=== PATIENT | male | born 1990 | race Caucasian/White ===

== ENCOUNTER 2023-10-06 09:12 | Emergency (ER) | payer SELFPAY ==
[2023-10-06] VITALS (8 sets, daily range): BP systolic 113–146; BP diastolic 66–96; PULSE 69–83; RESP 16–17; TEMP 36.6; O2SAT 91–97; BMI 30.4
--- NOTE | 2023-10-06 09:42 | CT_ITS ---
WS: [id number] CT FACIAL BONES TECHNIQUE: Contrast-enhanced facial bones with coronal and sagittal reformatted images. CLINICAL INFORMATION: dental abscess with submandibular swelling/fullness COMPARISON: None. DLP: 612.[address] scans at [facility] use at least one of these dose optimization techniques: automated e xposure control; mA and/or kV adjustment per patient size (includes targeted exams where dose is matc hed to clinical indication); or iterative reconstruction. FINDINGS: Evidence of recent dental extractions involving the LEFT posterior mandible. Peripherally enhancing a bscess in the extraction cavity involving the extraction cavity with inflammatory stranding and edema within the submandibular space extending into the floor of mouth. Small peripheral enhancing pockets of abscess in this area measuring up to 5 to 6 mm. Associated mass effect on the LEFT mylohyoid. Mas s effect on the LEFT parapharyngeal fat and LEFT oropharynx. Secretions in the LEFT vallecula with ph aryngeal edema. Reactive cervical lymph nodes submandibular space and LEFT upper cervical chain. Thickening of the pl atysma. Incidental enhancing venous angioma LEFT frontal lobe. Small retention cyst in the LEFT maxillary sin us. Paranasal sinuses are otherwise well aerated. Mastoid air cells appear well aerated. CT/CT facial bones w con [id number] IMPRESSION: 1. Evidence of recent posterior molar extraction from the LEFT mandible. Assoc iated abscess in the extraction cavity extending into the adjacent submandibula r space and sublingual space along the mylohyoid. Small patchy peripheral enhan cing abscess collections measuring up to 5 to 6 mm extending into the floor of mouth. 2. Mild mass effect on the oropharynx and palatine tonsil with partial effacem ent of the parapharyngeal fat. Secretions in the LEFT vallecula with mild mass effect on the oropharynx. No critical airway narrowing. 3. Associated reactive lymph nodes in the submandibular space and upper cervic al chain. 4. Evidence of chronic dental erosion and prior extraction within the LEFT max illa. Notified Kirby Pereira DO at 10/06/2023 10:55 AM.
--- NOTE | 2023-10-06 09:47 | ED_ITS ---
HPI - Dental/Oral 2 General: Chief complaint: Dental/Oral Stated complaint: Left side face possible infection Time Seen by Provider: 10/06/23 09:14 History of Present Illness: 33-year-old male presents emergency room 4 days ago he had several molar extracted and left mandible. Since then he has developed increased swelling and pain of the jaw extending underneath his jaw toward the midline. Low-grade subjective fever he is felt a little uncomfortable sensation with swallowing but has not had any difficulty with speech or swallowing. He has been on amoxicillin despite cyst he continues to have symptoms. No vomiting. Denies chest pain. No hemoptysis. Associated symptoms: Reports fever(s) (Subjective) Related Data Home Medications Medication Instructions Recorded Confirmed amoxicillin 500 mg capsule 500 mg PO TID 10/06/23 10/06/23 hydrocodone 7.5 mg-acetaminophen 1 tab PO .Q4-6H PRN Pain 10/06/23 10/06/23 325 mg tablet ketorolac 10 mg tablet 10 mg PO .Q6-8H PRN Pain 10/06/23 10/06/23 Allergies Allergy/AdvReac Type Severity Reaction Status Date / Time No Known Allergies Allergy Verified 10/06/23 09:23 Review of Systems 2 Const: Reports: fever(s) (Subjective); Denies: chills ENMT: Reports: other (Swelling in neck and under the jaw) Card: Denies: chest pain Resp: Denies: dyspnea GI: Denies: abdominal pain : Denies: dysuria, urinary frequency or urinary urgency Musc: Denies: neck pain or back pain Skin/Breast: Denies: rash Physical Exam 2 Const: COMMON NORMALS: no acute distress GENERAL APPEARANCE: cooperative and comfortable ORIENTATION/CONSCIOUSNESS: Yes awake, Yes oriented to person, Yes oriented to place and Yes oriented to time HENMT: COMMON NORMALS: normocephalic, atraumatic and hearing grossly normal bilaterally HEAD & SCALP: normocephalic and atraumatic OTHER: Oropharynx there is a inflamed gumline in the posterior gumline where the tooth was extracted no active drainage patient has significant tenderness, and tenesmus Neck/C-Spine: OTHER: Significant for soft tissue swelling in the septum extending into the submandibular space exquisitely tender over the left mandible near the angle of the jaw. Resp: COMMON NORMALS: normal respiratory effort, No retractions, No use of accessory muscles and clear to auscultation bilaterally AUSCULTATION: clear to auscultation bilaterally Cardio: COMMON NORMALS: regular rate, regular rhythm and No murmurs present (Cardio) RATE: regular rate RHYTHM: regular rhythm Extremity: COMMON NORMALS: normal to inspection, capillary refill normal, no clubbing, cyanosis or edema, no calf tenderness and no pedal edema Neuro: SENSORIUM/ORIENTATION: Yes oriented to person, Yes oriented to place and Yes oriented to time Skin: COMMON NORMALS: no rashes or lesions noted GENERAL SKIN EXAM: no rashes or lesions noted Course 2 Vital Signs: Vital signs: Vital Signs Temperature 97.9 F 10/06/23 09:20 Pulse Rate 69 10/06/23 15:00 Respiratory Rate 17 10/06/23 09:53 Blood Pressure 113/66 10/06/23 15:00 Pulse Oximetry 91 10/06/23 15:00 Oxygen Delivery Me thod Room Air 10/06/23 15:00 MDM - Dental/Oral Medical Decision Making Infection extending into the submandibular space with small areas of abscess discussed with on-call oral maxillofacial surgery they felt they should see the patient. He has had blood cultures and was started on vancomycin and Zosyn. Will transfer to [facility] patient is a direct admit to [place] and the hospital service and they will consult oral maxillary facial's surgery Lab Data 10/06/23 09:58 10/06/23 09:[address] 10/06/23 09:42 IMPRESSION: 1. Evidence of recent posterior molar extraction from the LEFT mandible. Associated abscess in the extraction cavity extending into the adjacent submandibular space and sublingual space along the mylohyoid. Small patchy peripheral enhancing abscess collections measuring up to 5 to 6 mm extending into the floor of mouth. 2. Mild mass effect on the oropharynx and palatine tonsil with partial effacement of the parapharyngeal fat. Secretions in the LEFT vallecula with mild mass effect on the oropharynx. No critical airway narrowing. 3. Associated reactive lymph nodes in the submandibular space and upper cervical chain. 4. Evidence of chronic dental erosion and prior extraction within the LEFT maxilla. Notified Kirby Pereira DO at 10/06/2023 10:55 AM. Laboratory Results WBC 11.39 10^3/uL (3.29-11.43) 10/06/23 09:58 RBC 5.55 10^6/uL (3.85-5.65) 10/06/23 09:58 Hgb 15.70 g/dL (11.27-16.99) 10/06/23 09:58 Hct 47.4 % (37-53) 10/06/23 09:58 MCV 85.4 fl (82-101) 10/06/23 09:58 MCH 28.3 pg (27-33) 10/06/23 09:58 MCHC 33.1 g/dL (30-55) 10/06/23 09:58 RDW 12.0 % (12.1-15.1) L 10/06/23 09:58 Plt Count 325 10^3/cmm (157-399) 10/06/23 09:58 MPV 10.6 fL (7.4-10.4) H 10/06/23 09:58 Neut % (Auto) 71.5 % 10/06/23 09:58 Lymph % (Auto) 18.3 % 10/06/23 09:58 [place] % (Auto) 8.5 % 10/06/23 09:58 Eos % (Auto) 0.8 % 10/06/23 09:58 Baso % (Auto) 0.5 % 10/06/23 09:58 Neut # (Auto) 8.14 10^3/uL (1.8-7.7) H 10/06/23 09:58 Lymph # (Auto) 2.1 10^3/uL (0.8-4.8) 10/06/23 09:58 [place] # (Auto) 1.0 10^3/uL (0.2-0.9) H 10/06/23 09:58 Eos # (Auto) 0.1 10^3/uL (0.0-0.8) 10/06/23 09:58 Baso # (Auto) 0.1 10^3/uL (0.0-0.1) 10/06/23 09:58 Nucleated RBC % (auto) 0 % 10/06/23 09:58 Nucleated RBCs # 0.0 /100WBC 10/06/23 09:58 Sodium 139 mmol/L (136-145) 10/06/23 09:58 Potassium 4.4 mmol/L (3.5-5.1) 10/06/23 09:58 Chloride 99 mmol/L (98-107) 10/06/23 09:58 Carbon Dioxide 25 mmol/L (22-29) 10/06/23 09:58 Anion Gap 19.4 (5-19) H 10/06/23 09:58 BUN 8 mg/dL (6-20) 10/06/23 09:58 Creatinine 0.8 mg/dL (0.7-1.2) 10/06/23 09:58 GFR Calculation 110.7 mL/min (90-130) 10/06/23 09:58 Glucose 116 mg/dL (65-115) H 10/06/23 09:58 Calculated Osmolality 287 mOsm/kg (285-295) 10/06/23 09:58 Lactic Acid 0.9 mmol/L (0.5-2.2) 10/06/23 11:07 Calcium 9.6 mg/dL (8.5-10.5) 10/06/23 09:58 Total Bilirubin 0.6 mg/dL (0.15-1.2) 10/06/23 09:58 AST 20 U/L (0-40) 10/06/23 09:58 ALT 20 U/L (0-41) 10/06/23 09:58 Alkaline Phosphatase 114 U/L (40-130) 10/06/23 09:58 Total Protein 8.5 g/dL (6.6-8.7) 10/06/23 09:58 Albumin 4.6 g/dL (3.5-5.2) 10/06/23 09:58 Globulin 3.9 g/dL (1.3-4.6) 10/06/23 09:58 All radiology interpretation(s) finalized by discharge Discharge Plan Discharge Patient Disposition: Xfer Short-Term Hosp Clinical Impression: Efren's angina syndrome Condition: Stable Prescriptions: No Action amoxicillin 500 mg capsule 500 mg PO TID ketorolac 10 mg tablet 10 mg PO .Q6-8H PRN (Reason: Pain) hydrocodone-acetaminophen 7.5-325 mg tablet 1 tab PO .Q4-6H PRN (Reason: Pain) Referrals: Piter Walker MD [Primary Care Provider] - Coding Level of Care Code ED Project Superintendent for [facility]
[2023-10-06] MEDS: morphine 4 mg/mL SDV 1 mL IVP (09:53)
[2023-10-06] MEDS: ondansetron 2 mg/ML SDV 2 mL 4 MG IVP (09:53)
[2023-10-06 10:14] LABS: Basophils # 0.1 10^3/uL (0.0-0.1); Basophils % 0.5 %; Eosinophils # 0.1 10^3/uL (0.0-0.8); Eosinophils % 0.8 %; Hematocrit 47.4 % (37-53); Lymphocytes # 2.1 10^3/uL (0.8-4.8); Lymphocytes % 18.3 %; Mean Corpuscular HGB Conc 33.1 g/dL (30-55); Mean Corpuscular Hemoglobin 28.3 pg (27-33); Mean Corpuscular Volume 85.4 fl (82-101); Mean Platelet Volume 10.6 fL (7.4-10.4); Monocytes % 8.5 %; Neutrophils # 8.14 10^3/uL (1.8-7.7); Neutrophils % 71.5 %; Nucleated Red Blood Cells % 0 %; Platelet Count 325 10^3/cmm (157-399); Red Blood Count 5.55 10^6/uL (3.85-5.65); White Blood Count 11.39 10^3/uL (3.29-11.43)
[2023-10-06] MEDS: iohexol 350 mg/mL 500 mL Btl (per mL) IV (10:17)
[2023-10-06 10:38] LABS: Albumin Level 4.6 g/dL (3.5-5.2); Alkaline Phosphatase 114 U/L (40-130); Anion Gap 19.4 (5-19); Aspartate Amino Transferase 20 U/L (0-40); Blood Urea Nitrogen 8 mg/dL (6-20); Calcium 9.6 mg/dL (8.5-10.5); Carbon Dioxide 25 mmol/L (22-29); Chloride 99 mmol/L (98-107); Creatinine Clr Calc Pharmacy 142.3035; Globulin 3.9 g/dL (1.3-4.6); Glomerular Filtration Rate 110.7 mL/min (90-130); Glucose 116 mg/dL (65-115); Osmolality Calculated 287 mOsm/kg (285-295); Potassium 4.4 mmol/L (3.5-5.1); Sodium 139 mmol/L (136-145); Total Bilirubin 0.6 mg/dL (0.15-1.2); Total Protein 8.5 g/dL (6.6-8.7)
[2023-10-06 10:50] LABS: Alanine Aminotransferase 20 U/L (0-41)
[2023-10-06] MEDS: dexamethasone 10 mg/mL INJ IVP (11:01)
[2023-10-06] MEDS: piperacillin-tazobactam 3.375 GM in sodium chloride 0.9% (plus) 50 ML IV (11:01)
[2023-10-06 11:30] LABS: Lactic Sepsis W/Reflex 0.9 mmol/L (0.5-2.2)
[2023-10-06] MEDS: vancomycin 1,000 MG in sodium chloride 0.9% 250 ML 250 MG IV (11:33)
--- NOTE | 2023-10-06 15:03 | PC.NURSE ---
REPORT CALLED TO DANNA MOURA. ACCEPTING NURSE DENIED ANY FURTHER VERBALIZED QUESTIONS OR CONCERNS.
== END 2023-10-06 17:30 | disposition short-term general hospital (02) ==
PROVIDERS: Emergency Provider Family Medicine; Family Provider Family Medicine; PCP Family Medicine
DX: K12.2 Cellulitis and abscess of mouth (principal)
CPT/HCPCS: 36415; 70487; 80053; 83605; 85025; 87040; 96365; 96367; 96375; 99285; J1100; J2270; J2405; J2543; J3370; J7050; Q9967